=== PATIENT | male | born 1950 | race Caucasian/White ===

== ENCOUNTER 2019-02-11 19:48 | Inpatient (IN) | payer MEDICARE, OTHER ==
[~2019-02-11] VITALS: Ht 177.8 cm; Wt 93.9 kg
--- NOTE | 2019-02-11 19:52 | NUR ---
[id number] FROM HOME C/O PALPITATIONS X 1 HOUR, NEW ONSET. PER RA RAPID AFIB. DENIES CP, PATIENT DOES STATE HAVING SOB ON EXERTION. PULSE OX IS 100% ON RA. SKIN INTACT. NO ACUTE DISTRESS NOTED. NO OTHER COMPLAINTS AT THIS TIME. ON MONITOR, MADE COMFORTABLE, READY FOR EVAL.
--- NOTE | 2019-02-11 19:55 | NUR ---
ROSALBA, HEARING CONSULTANT AT BEDSIDE FOR EVAL.
[2019-02-11] MEDS ORDERED: DILTIAZEM HCL 25 MG IV ONE (20:00)
--- NOTE | 2019-02-11 20:04 | NUR ---
25MG CARDIZEM GIVEN IV PER VERBAL ORDER FROM
--- NOTE | 2019-02-11 20:10 | NUR ---
DR FRIAS AT BEDSIDE FOR EVAL.
[2019-02-11 20:17] LABS: BASOPHILS % (AUTO) 0.7 % (0.0-2.0); EOSINOPHILS % (AUTO) 1.1 % (0.0-6.0); HEMATOCRIT 41 % (39-51); HEMOGLOBIN 13.8 g/dL (13.5-17.5); LYMPHOCYTES # (AUTO) 1.1 /CMM (0.8-4.8); LYMPHOCYTES % (AUTO) 22.3 % (20.0-44.0); MEAN CORPUSCULAR HGB CONC 34 g/dl (31.0-36.0); MEAN CORPUSCULAR VOLUME 93 fL (80-96); MONOCYTES # (AUTO) 0.3 /CMM (0.1-1.30); MONOCYTES % (AUTO) 6.1 % (2.0-12.0); NEUTROPHILS # (AUTO) 3.5 /CMM (1.8-8.9); NEUTROPHILS % (AUTO) 69.8 % (43.0-81.0); PLATELET COUNT (AUTO) 241 /CMM (150-450); RED BLOOD CELL COUNT(AUTO) 4.39 MIL/uL (4.5-6.0)
[2019-02-11] MEDS ORDERED: ASPIRIN 81 MG TAB.CHEW ONE (20:20)
[2019-02-11] MEDS ORDERED: DILTIAZEM HCL 25 MG IV IV ONE ×2 (20:30→22:00)
[2019-02-11] MEDS ORDERED: ASPIRIN 81 MG TAB.CHEW PO ONE (20:30)
[2019-02-11 20:35] LABS: ALANINE AMINOTRANSFERASE 20 U/L (12-78); ALBUMIN 3.3 g/dL (3.4-5.0); ALKALINE PHOSPHATASE 55 U/L (46-116); ASPARTATE AMINOTRANSFERASE 13 U/L (15-37); BILIRUBIN,TOTAL 0.2 mg/dL (0.2-1.0); CALCIUM, SERUM 8.7 mg/dL (8.5-10.1); CARBON DIOXIDE 26 mmol/L (21-32); CHLORIDE 108 mmol/L (98-107); GLUCOSE 123 mg/dL (74-106); SODIUM SERUM 141 mmol/L (136-145); UREA NITROGEN, BLOOD 25 mg/dL (7-18)
[2019-02-11] MEDS ORDERED: DILTIAZEM HCL IV PRN (21:00)
[2019-02-11] MEDS ORDERED: D5W IV PRN (21:00)
[2019-02-11] MEDS ORDERED: DILTIAZEM HCL 50 MG IV ONE (21:12)
--- NOTE | 2019-02-11 21:29 | NUR ---
CARDIZEM DRIP STARTED AT 5 ML/HR TO TITRATE MAX 15 ML/HR PER MD.
[2019-02-11] MEDS ORDERED: MAG HYDROX/AL HYDROX/SIMETH 30 ML UDC PO PRN (21:30)
[2019-02-11] MEDS ORDERED: Z GUARD REMEDY 2 OZ OINT TP PRN (21:30)
[2019-02-11] MEDS ORDERED: MAGNESIUM HYDROXIDE 30 ML UDC PO PRN (21:30)
[2019-02-11] MEDS ORDERED: HYDROCODONE/APAP 5/325MG 1 EACH TABLET PO PRN (21:30)
[2019-02-11] MEDS ORDERED: ONDANSETRON HCL/PF 4 MG/2 ML VIAL IVP PRN (21:30)
[2019-02-11] MEDS ORDERED: ACETAMINOPHEN 325 MG TABLET PO PRN (21:30)
[2019-02-11] MEDS ORDERED: ZOLPIDEM TARTRATE 5 MG TABLET PO PRN (21:30)
[2019-02-11] MEDS ORDERED: IV NS 0.9% 1,000 ML BAG IV ONE (22:00)
--- NOTE | 2019-02-11 22:17 | NUR ---
REPORT GIVEN TO NEYDA FINN FOR JULIANNE, 109 T
--- NOTE | 2019-02-11 22:50 | NUR ---
RN ADMITTING MELANIE NOTE RECEIVED PT FROM ER, AOX 4 ON R/A WELL TOLE' WITH AFIB W RVR UN CONTROLLED 130-150'S, CARDIZEM DRIP RUNNING AT 5ML/HR @ LH#18G, ALSO SL RW#20G WELL SECURED AND PATENT, PT DENIES ANY CP OR DISCOMFORT, PRESENT AT TIME OF ARRIVAL, PT ABLE TO AMBULATE TO BED WITH STABLE GAIT. NO SKIN ISSUES NOTED, SEEN AT BEDSIDE BY DR PERAZA, ADMITTING ORDERS ENTERD PER PROTOCOL, ALL NEEDS MET, CL PROVIDED WELL SAFETY MEASURES EXPLAINED FOR FALL PRECAUTION, WILL CONT' TO MONITOR.
[2019-02-11 23:00] VITALS: BP 90/61
[2019-02-11] MEDS: METOPROLOL TARTRATE 25 MG TABLET PO SCH (23:00)
[2019-02-11] MEDS ORDERED: ENOXAPARIN SODIUM 40 MG/0.4 ML DISP.SYRIN SQ ONE (23:00)
--- NOTE | 2019-02-11 23:03 | NUR ---
[facility]
[2019-02-12] MEDS ORDERED: DILTIAZEM HCL IV 125 MG in IV D5W 100 ML IV PRN ×2
[2019-02-12 00:12] VITALS: BP 90/61
--- NOTE | 2019-02-12 01:58 | NUR ---
RN NOTE PT CONVERTED FROM AFIB W RVR TO SB 50'S TO 60'S MD PERAZA NOTIFIED, WITH ORDER TO DC CARDIZEM DRIP, EKG STRIP PRINTED AND FILED.
[2019-02-12 04:54] VITALS: BP 101/58
--- NOTE | 2019-02-12 06:36 | NUR ---
RN MELANIE CLOSING NOTE ENDORSED PT TO AM RN JULIANNE, MONITOR TROPONIN NOTIFY MD FOR REPEAT, MONITOR VS.
[2019-02-12 07:01] LABS: CALCIUM, SERUM 7.9 mg/dL (8.5-10.1); CREATININE 0.9 mg/dL (0.6-1.3); MAGNESIUM 1.8 mg/dL (1.8-2.4); PHOSPHORUS 3.2 mg/dL (2.5-4.9); POTASSIUM 4.5 mmol/L (3.5-5.1)
[2019-02-12 07:07] LABS: BASOPHILS % (AUTO) 0.6 % (0.0-2.0); HEMATOCRIT 36 % (39-51); HEMOGLOBIN 12.1 g/dL (13.5-17.5); LYMPHOCYTES # (AUTO) 1.1 /CMM (0.8-4.8); LYMPHOCYTES % (AUTO) 25.3 % (20.0-44.0); MEAN CORPUSCULAR HGB CONC 34 g/dl (31.0-36.0); MEAN CORPUSCULAR VOLUME 94 fL (80-96); MONOCYTES # (AUTO) 0.3 /CMM (0.1-1.30); MONOCYTES % (AUTO) 5.7 % (2.0-12.0); NEUTROPHILS % (AUTO) 67.4 % (43.0-81.0); PLATELET COUNT (AUTO) 212 /CMM (150-450); RED BLOOD CELL COUNT(AUTO) 3.83 MIL/uL (4.5-6.0); WHITE BLOOD COUNT (AUTO) 4.5 K/uL (4.3-11.0)
--- NOTE | 2019-02-12 07:25 | NUR ---
MELANIE RN OPENING NOTE RECEIVED REPORT FROM PM NURSE. PT IN BED. AOX 4 ON R/A TOLERATING WELL.NO SOB NO DISTRESS NOTED. IV ON LH#18G, ALSO SL RW#20G WELL SECURED AND PATENT, PT DENIES ANY CP OR DISCOMFORT, AT BEDSIDE. SAFETY MEASURES EXPLAINED FOR FALL PRECAUTION.BED IS LOW AND IN LOCKED POSITION.SRX2.PLAN OF CARE EXPLAINED.WILL CONTINUE TO MONITOR.
[2019-02-12] MEDS ORDERED: PRAV20TA4 PO (07:44)
[2019-02-12 08:00] VITALS: BP_SYST 88; BP_SYST 93; BP_DIAS 59
[2019-02-12 08:50] VITALS: BP 93/59
[2019-02-12] MEDS: METOPROLOL TARTRATE 25 MG TABLET PO SCH (08:50)
[2019-02-12] MEDS ORDERED: IV NS 0.9% 1,000 ML IV SCH (09:55)
--- NOTE | 2019-02-12 10:15 | NUR ---
MELANIE RN NOTE SEEN BY ,UPDATED ABOUT PATIENT CONDITION.GOT NEW ORDERS.
[2019-02-12 10:26] LABS: THYROID STIMULATING HORMONE 1.075 uIU/mL (0.358-3.74)
--- NOTE | 2019-02-12 10:30 | NUR ---
MELANIE RN NOTE PATIENT AND WANT TO LEAVE AMA.EXPLAINED RISK AND BENEFIT.STILL REFUSING.HE MENTIONED THAT HE WILL F/U WITH HIS DOCTOR IN [facility] .LISBET KOLB MADE AWARE.
--- NOTE | 2019-02-12 10:45 | NUR ---
MELANIE [facility] NOTE PATIENT LEFT AMA WITH .ACCEPTED DISCHARGE PAPER WORK.SIGNED AMA.TOOK ALL BELONGINGS.EXPLAINED RISK AND BENEFIT.ENGINE MONITOR CORTES TALKED TO THE PATIENT AND FAMILY STRONGLY RECOMMENDED TO F/U WITH HIS DOCTOR.PATIENT TOLD HE WILL F/U WITH HIS DOCTOR JOSE MANUEL.EXIT CARE GIVEN.PATIENT VERBALIZED UNDERSTANDING.TOOK ALL DISCHARGE PAPERWORK.ACCOMPANIED PATIENT TILL LOBBY.LEFT IN PRIVATE CAR WITH .
[2019-02-12] MEDS ORDERED: RIVAROXABAN 10 MG TABLET PO SCH (17:00)
[2019-02-12] MEDS ORDERED: ENOXAPARIN SODIUM 40 MG/0.4 ML DISP.SYRIN SQ SCH (21:00)
== END 2019-02-12 10:45 | disposition home or self-care (01) | DRG 281 ==
LOC: ER 19:53 → TELE1 22:29 → TELE-TD 23:12
PROVIDERS: ADMIT Internal Medicine; ATTEND Hospitalist
DX: I48.91 Unspecified atrial fibrillation (principal); I21.A1 Myocardial infarction type 2; E44.1 Mild protein-calorie malnutrition; Z85.46 Personal history of malignant neoplasm of prostate; Z91.19 Patient's noncompliance with other medical treatment and regimen; Z91.14 Patient's other noncompliance with medication regimen; Z98.890 Other specified postprocedural states; Z79.899 Other long term (current) drug therapy; D64.9 Anemia, unspecified; E78.5 Hyperlipidemia, unspecified
CPT/HCPCS: 36415; 71045-TC; 80048-TC; 80061-TC; 80076-TC; 82728-TC; 83540-TC; 83735-TC; 83880; 84100-TC; 84439-TC; 84443-TC; 84484-TC; 85025-TC; 85730-TC; 87081-TC; G0378; J1650; J3490; J7030; J7040